=== PATIENT | male | born 1945 | race Hispanic/Latino ===

== ENCOUNTER 2017-07-26 13:44 | Emergency (ER) | payer OTHER ==
--- OUTSIDE RECORDS SUMMARY | 2017-07-26 13:52 | XMS REPORT ---
:1945 Author Organization eClinicalWorks Care Team Providers Name Role Phone Zhao Mayo Provider Role Unavailable Allergies No Known Allergies Problems Problem Type Condition Code Onset Dates Condition Status Problem Pulmonary nodule seen on imaging R91.1 Active study Problem COPD (chronic obstructive pulmonary J44.0 Active disease) with acute bronchitis Problem Benign paroxysmal positional vertigo H81.10 Active Assessment Diabetes type 2, controlled E11.9 Active Problem Hypertension I10 Active Problem Diabetes type 2, controlled E11.9 Active Problem Iron deficiency anemia, unspecified D50.9 Active iron deficiency anemia type Problem Allergic rhinitis, seasonal J30.2 Active Problem Hernia, inguinal K40.90 Active Problem Hearing loss H91.90 Active Problem Hyperlipemia, mixed E78.2 Active Medications Medication Code System Code Instructions Start End Date Status Dosage Date [facility] 89025330043 50-1000 MG Orally Active 1 tablet Twice a day with meals Results No Known Results Summary Purpose eClinicalWorks Submission
--- OUTSIDE RECORDS SUMMARY | 2017-07-26 13:52 | XMS REPORT ---
:1945 Author Organization eClinicalWorks Care Team Providers Name Role Phone Mayo Churchill Provider Role Unavailable Allergies No Known Allergies Problems Problem Type Condition Code Onset Dates Condition Status Problem Pulmonary nodule seen on imaging R91.1 Active study Problem COPD (chronic obstructive pulmonary J44.0 Active disease) with acute bronchitis Problem Benign paroxysmal positional vertigo H81.10 Active Problem Hypertension I10 Active Problem Diabetes type 2, controlled E11.9 Active Problem Iron deficiency anemia, unspecified D50.9 Active iron deficiency anemia type Problem Allergic rhinitis, seasonal J30.2 Active Problem Hernia, inguinal K40.90 Active Problem Hearing loss H91.90 Active Problem Hyperlipemia, mixed E78.2 Active Assessment Hypertension I10 Active Assessment Hyperlipemia, mixed E78.2 Active Assessment COPD (chronic obstructive pulmonary J44.0 Active disease) with acute bronchitis Assessment Iron deficiency anemia, unspecified D50.9 Active iron deficiency anemia type Assessment Pulmonary nodule seen on imaging R91.1 Active study Assessment Diabetes type 2, controlled E11.9 Active Medications Medication Code Code Instructions Start End Status Dosage System Date Date Ferrous Sulfate [facility] 45419510080 325 (65 Fe) MG June 27, Active 1 tablet Orally Twice a 2018 day Aspir-81 [facility] 91961294853 81 MG Orally Active 1 tablet Once a day ProAir [facility] 23321625471 108 (90 Base) Active 2 puffs as RespiClick MCG/ACT needed Inhalation every 6 hrs Valsartan-Goff [facility] 88115098847 320-25 MG Orally June 27, Active 1 tablet chlorothiazide Once a day 2018 Coreg [facility] 11120304747 6.25 MG Orally Active 1 tab BID Pravastatin [facility] 88675091483 10 MG Orally Active 1 tablet Sodium Once a day Coreg [facility] 71610322110 6.25 MG Active TAKE ONE (1) TABLET(S) BY MOUTH TWICE A DAY. Janumet [facility] 90480053409 50-1000 MG Active 1 tablet Orally Twice a with meals day Flonase [facility] 43424014052 50 MCG/ACT Active 1 spray in Nasally Once a each day nostril Results Name Result Date Reference Range Unit Abnormality Flag HEMOGLOBIN A1c CMP LIPID PANEL WITH REFLEX TO DIRECT LDL CBC (INCLUDES DIFF/PLT) WITH SMEAR REVIEW Summary Purpose eClinicalWorks Submission
[2017-07-26 15:26] LABS: Bicarbonate 29 mEq/L (21-31); Glucose Level 131 mg/dL (65-120); Lipase 33 U/L (22-51); Potassium 3.8 mEq/L (3.6-5.0); Sodium Level 137 mEq/L (135-145)
[2017-07-26 15:32] LABS: ALT/SGPT 20 IU/L (10-60); AST/SGOT 21 IU/L (10-42); Albumin 4.1 g/dL (3.2-5.5); Alkaline Phosphatase 43 IU/L (42-121); BUN Blood Urea Nitrogen 14 mg/dL (6-20); Bilirubin Direct < 0.1 mg/dL (0-0.2); Bilirubin Total 0.3 mg/dL (0.3-1.2); Protein, Total 7.6 g/dL (6.0-8.3)
[2017-07-26 15:40] LABS: Absolute Lymphocytes (CBC) 1.2 K/uL (0.7-4.9); Absolute Monocytes 0.6 K/uL (0.1-1.3); Absolute Neutrophil 5.3 K/uL (1.8-8.0); Basophils % 0.5 % (0-1.3); Eosinophils % 2.6 % (0-4.4); Hematocrit 39.1 % (39.6-49.0); Lymphocytes % 16.2 % (15.3-44.8); MCV 75.4 fL (80-100); MPV 8.8 fL (7.6-11.3); Monocytes % 8.1 % (3.3-12.3); RBC Red Blood Cell Count 5.18 M/uL (4.33-5.43)
[2017-07-26 15:59] LABS: Urine Blood TRACE (NEG); Urine Glucose NEGATIVE (NEG); Urine Protein NEGATIVE (NEG); Urine Specific Gravity 1.025 (1.005-1.030); Urine pH 5.5 (5.0-7.0)
--- NOTE | 2017-07-26 16:27 | RAD REPORT ---
EXAM DESCRIPTION: CT - Abdomen Pelvis W Contrast - 07/26/2017 4:12 pm CLINICAL HISTORY: Abdominal pain for 3 weeks. COMPARISON: none. TECHNIQUE: Computed axial tomography of the abdomen pelvis was obtained. 100 cc Isovue-300 was admin istered intravenously. Oral contrast was not requested which limits evaluation of bowel. All CT scans are performed using dose optimization technique as appropriate and may include automated exposure control or mA/KV adjustment according to patient size. FINDINGS: The liver, spleen, pancreas, adrenal and kidneys appear unremarkable. There is no evidence of diverticulitis. The appendix is normal The prostate gland is markedly enlarged containing calcification. Postsurgical changes of a left inguinal hernia repair are noted. A small right inguinal hernia contai ns fat IMPRESSION: Marked prostatic hypertrophy No acute abnormality is displayed
--- NOTE | 2017-07-26 16:52 | EDPHYS ---
Physician Documentation [facility] Name: Alexx Altman Age: 72 yrs Sex: Male : 1945 Arrival Date: 07/26/2017 Time: 13:47 Bed 13 Private MD: Mayo Churchill ED Physician Sukhi Bustillos HPI: 07/26 16:04 This 72 yrs old Male presents to ER via Ambulatory with complaints of jr8 Abdominal Pain. 16:04 The patient presents with abdominal pain in the upper abdomen. Onset: The jr8 symptoms/episode began/occurred acutely, 3 month(s) ago, and became worse and became persistent. The symptoms do not radiate. Associated signs and symptoms: Pertinent positives: nausea and vomiting. The symptoms are described as shooting. Modifying factors: The symptoms are alleviated by nothing, the symptoms are aggravated by nothing. Severity of pain: At its worst the pain was mild in the emergency department the pain is unchanged. The patient has not experienced similar symptoms in the past. The patient has not recently seen a physician. Historical: - Allergies: 14:04 No Known Allergies; aj1 - Home Meds: 14:04 aspirin 81 mg Oral chew 1 tab once daily [Active]; carvedilol 6.25 mg Oral tab 1 tab 2 aj1 times per day [Active]; Fish Oil 183.3 mg-75 mg -91.6 mg-306 mg Oral cap [Active]; Janumet 50-1,000 mg Oral tab 1 tab 2 times per day [Active]; pravastatin 10 mg Oral tab 1 tab once daily [Active]; valsartan-hydrochlorothiazide 320-12.5 mg Oral tab 1 tab once daily [Active]; - PMHx: 14:04 Asthma; Diabetes - NIDDM; Hypertension; Hyperlipidemia; aj1 - Immunization history:: Flu vaccine is up to date. - Social history:: Smoking status: Patient/guardian denies using tobacco. - Ebola Screening: : Patient denies travel to an Ebola-affected area in the 21 days before illness onset. ROS: 16:04 Eyes: Negative for injury, pain, redness, and discharge, ENT: Negative for injury, jr8 pain, and discharge, Neck: Negative for injury, pain, and swelling, Cardiovascular: Negative for chest pain, palpitations, and edema, Respiratory: Negative for shortness of breath, cough, wheezing, and pleuritic chest pain, Back: Negative for injury and pain, MS/Extremity: Negative for injury and deformity, Skin: Negative for injury, rash, and discoloration, Neuro: Negative for headache, weakness, numbness, tingling, and seizure. 16:04 Abdomen/GI: Positive for abdominal pain, nausea and vomiting, Negative for diarrhea, constipation, abdominal cramps, abdominal distension, anorexia, dysphagia, hematemesis, black/tarry stool, rectal pain, rectal bleeding, bowel incontinence, flatulence. Exam: 16:04 ENT: Nares patent. No nasal discharge, no septal abnormalities noted. Tympanic jr8 membranes are normal and external auditory canals are clear. Oropharynx with no redness, swelling, or masses, exudates, or evidence of obstruction, uvula midline. Mucous membranes moist. Cardiovascular: Regular rate and rhythm with a normal S1 and S2. No gallops, murmurs, or rubs. Normal PMI, no JVD. No pulse deficits. Respiratory: Lungs have equal breath sounds bilaterally, clear to auscultation and percussion. No rales, rhonchi or wheezes noted. No increased work of breathing, no retractions or nasal flaring. Back: No spinal tenderness. No costovertebral tenderness. Full range of motion. Skin: Warm, dry with normal turgor. Normal color with no rashes, no lesions, and no evidence of cellulitis. MS/ Extremity: Pulses equal, no cyanosis. Neurovascular intact. Full, normal range of motion. Neuro: Awake and alert, GCS 15, oriented to person, place, time, and situation. Cranial nerves II-XII grossly intact. Motor strength 5/5 in all extremities. Sensory grossly intact. Cerebellar exam normal. Normal gait. 16:04 Abdomen/GI: Inspection: abdomen appears normal, Bowel sounds: active, all quadrants, Palpation: soft, in all quadrants, mild abdominal tenderness, in the epigastric area, left upper quadrant and left lower quadrant, mass, is not appreciated, rebound tenderness, is not appreciated, voluntary guarding, is not appreciated, involuntary guarding, is not appreciated, no appreciated organomegaly. Vital Signs: 14:04 BP 178 / 85; Pulse 62; Resp 18; Temp 98.2(O); Pulse Ox 96% on R/A; Weight 72.57 kg (R); aj1 Height 5 ft. 5 in. (165.10 cm); Pain 10/10; 15:15 BP 150 / 76; Pulse 60; Resp 18 S; Pulse Ox 98% on R/A; Pain 0/10; aa5 16:00 BP 139 / 79; Pulse 60; Resp 16 S; Pulse Ox 96% on R/A; Pain 0/10; aa5 14:04 Body Mass Index 26.63 (72.57 kg, 165.10 cm) aj1 MDM: 14:52 Patient medically screened. jr8 16:50 Data reviewed: vital signs, nurses notes, lab test result(s), radiologic studies, CT jr8 scan, and as a result, I will discharge patient. Data interpreted: Pulse oximetry: on room air is 96 %. Interpretation: normal. Counseling: I had a detailed discussion with the patient and/or guardian regarding: the historical points, exam findings, and any diagnostic results supporting the discharge/admit diagnosis, lab results, radiology results, the need for outpatient follow up, a relocation counselor, to return to the emergency department if symptoms worsen or persist or if there are any questions or concerns that arise at home. ED course: Patient with benign abdomen on examination. No fevers, no white cell count. No acute findings on CT. Patient with minimal pain currently. Needs to f/u with GI for further evaluation. If worse to come back. Patient and family is good with this . 07/26 14:53 Order name: Basic Metabolic Panel; Complete Time: 15:51 07/26 14:53 Order name: CBC with Diff; Complete Time: 16:29 07/26 14:53 Order name: Creatinine for Radiology; Complete Time: 15:51 07/26 14:53 Order name: Hepatic Function; Complete Time: 15:51 07/26 14:53 Order name: Lipase; Complete Time: 15:51 07/26 15:41 Order name: Urine Dipstick--Ancillary (enter results) bd 07/26 14:53 Order name: IV Saline Lock; Complete Time: 15:07 07/26 14:53 Order name: Labs collected and sent; Complete Time: 15:07 07/26 14:53 Order name: Urine Dipstick-Ancillary (obtain specimen); Complete Time: 15:41 07/26 15:41 Order name: Urine Dipstick-Ancillary; Complete Time: 16:01 EDMI 07/26 15:58 Order name: CT Abd/Pelvis - W/Contrast; Complete Time: 16:29 jr8 Administered Medications: No medications were administered Disposition: 18:35 Co-signature as Attending Physician, Sukhi Bustillos MD. rn Disposition: 07/26/17 16:51 Discharged to Home. Impression: Abdominal and pelvic pain. - Condition is Stable. - Discharge Instructions: Abdominal Pain, Adult. - Prescriptions for omeprazole 40 mg Oral capsule,delayed release(DR/EC) - take 1 capsule by ORAL route once daily; 30 capsule. - Medication Reconciliation Form, Thank You Letter, Antibiotic Education, Prescription Opioid Use form. - Follow up: Rajendra Murray MD; When: 5 - 6 days; Reason: Recheck today's complaints, Continuance of care, Re-evaluation by your physician. - Problem is new. - Symptoms have improved. Signatures: Dispatcher [employer] [facility] Hailee Vera RN RN aj1 Sukhi Bustillos MD MD rn Roszak, Josh, PA PA jr8 Thomas Gomes RN RN hj Corrections: (The following items were deleted from the chart) 17:53 16:51 07/26/2017 16:51 Discharged to Home. Impression: Abdominal and pelvic pain. hj Condition is Stable. Forms are Medication Reconciliation Form, Thank You Letter, Antibiotic Education, Prescription Opioid Use. Follow up: Rajendra Murray; When: 5 - 6 days; Reason: Recheck today's complaints, Continuance of care, Re-evaluation by your physician. Problem is new. Symptoms have improved. jr8
--- NOTE | 2017-07-26 16:52 | ER ---
Nurse's Notes [facility] Name: Alexx Altman Age: 72 yrs Sex: Male : 1945 Arrival Date: 07/26/2017 Time: 13:47 Bed 13 Private MD: Mayo Churchill Diagnosis: Abdominal and pelvic pain Presentation: 07/26 14:02 Presenting complaint: Patient states: abdominal pain for the past 3 weeks that comes aj1 and goes, but has been severe for the past week. Report nausea, vomiting. Denies diarrhea, fever. Transition of care: patient was not received from another setting of care. Onset of symptoms was June 2017. Risk Assessment: Do you want to hurt yourself or someone else? Patient reports no desire to harm self or others. Initial Sepsis Screen: Does the patient meet any 2 criteria? No. Patient's initial sepsis screen is negative. Does the patient have a suspected source of infection? No. Patient's initial sepsis screen is negative. Care prior to arrival: None. 14:02 Method Of Arrival: Ambulatory aj1 14:02 Acuity: WILLIAM 3 aj1 Triage Assessment: 14:04 General: Appears in no apparent distress. uncomfortable, Behavior is calm, cooperative, aj1 appropriate for age. Pain: Complains of pain in epigastric area, left upper quadrant and left lower quadrant Pain does not radiate. Pain currently is 10 out of 10 on a pain scale. GI: Abdomen is non-distended. Historical: - Allergies: 14:04 No Known Allergies; aj1 - Home Meds: 14:04 aspirin 81 mg Oral chew 1 tab once daily [Active]; carvedilol 6.25 mg Oral tab 1 tab 2 aj1 times per day [Active]; Fish Oil 183.3 mg-75 mg -91.6 mg-306 mg Oral cap [Active]; Janumet 50-1,000 mg Oral tab 1 tab 2 times per day [Active]; pravastatin 10 mg Oral tab 1 tab once daily [Active]; valsartan-hydrochlorothiazide 320-12.5 mg Oral tab 1 tab once daily [Active]; - PMHx: 14:04 Asthma; Diabetes - NIDDM; Hypertension; Hyperlipidemia; aj1 - Immunization history:: Flu vaccine is up to date. - Social history:: Smoking status: Patient/guardian denies using tobacco. - Ebola Screening: : Patient denies travel to an Ebola-affected area in the 21 days before illness onset. Screenin:02 Abuse screen: Denies threats or abuse. Denies injuries from another. Nutritional hj screening: No deficits noted. Tuberculosis screening: No symptoms or risk factors identified. Fall Risk None identified. Assessment: 15:02 GI: Bowel sounds present X 4 quads. Abd is soft Abd is non tender. hj 15:02 General: Appears in no apparent distress. uncomfortable, Behavior is calm, cooperative, hj appropriate for age. Pain: Complains of pain in epigastric area Pain radiates to left lower quadrant and left upper quadrant. Neuro: Level of Consciousness is awake, alert, obeys commands, Oriented to person, place, time, situation, Appropriate for age. Cardiovascular: Capillary refill < 3 seconds Patient's skin is warm and dry. Respiratory: Airway is patent Respiratory effort is even, unlabored, Respiratory pattern is regular, symmetrical. GI: Reports lower abdominal pain, upper abdominal pain. : No signs and/or symptoms were reported regarding the genitourinary system. EENT: No signs and/or symptoms were reported regarding the EENT system. Derm: No signs and/or symptoms reported regarding the dermatologic system. Musculoskeletal: No signs and/or symptoms reported regarding the musculoskeletal system. 16:00 Reassessment: Patient and/or family updated on plan of care and expected duration. Pain aa5 level reassessed. Patient is alert, oriented x 3, equal unlabored respirations, skin warm/dry/pink. Pt back from CT . 16:00 GI: Patient currently denies nausea, vomiting. aa5 Vital Signs: 14:04 BP 178 / 85; Pulse 62; Resp 18; Temp 98.2(O); Pulse Ox 96% on R/A; Weight 72.57 kg (R); aj1 Height 5 ft. 5 in. (165.10 cm); Pain 10/10; 15:15 BP 150 / 76; Pulse 60; Resp 18 S; Pulse Ox 98% on R/A; Pain 0/10; aa5 16:00 BP 139 / 79; Pulse 60; Resp 16 S; Pulse Ox 96% on R/A; Pain 0/10; aa5 14:04 Body Mass Index 26.63 (72.57 kg, 165.10 cm) aj1 ED Course: 13:47 Patient arrived in ED. mr 13:47 Mayo Churchill DO is Private Physician. mr 14:03 Triage completed. aj1 14:04 Arm band placed on Patient placed in waiting room, Patient notified of wait time. aj1 14:52 Jesus Manuel Tang PA is PHCP. jr8 14:52 Sukhi Bustillos MD is Attending Physician. jr8 15:02 Thomas Gomes, RN is Primary Nurse. hj 15:03 Patient has correct armband on for positive identification. Placed in gown. Bed in low hj position. Call light in reach. Side rails up X 1. Adult w/ patient. 15:05 Initial lab(s) drawn, by me, sent to lab. Inserted saline lock: 20 gauge in right hj antecubital area, using aseptic technique. Blood collected. 16:[address] jj2 16:10 CT completed. Patient tolerated procedure well. Patient moved back from CT. mw3 16:13 CT Abd/Pelvis - W/Contrast In Process Unspecified. EDMS 16:23 No provider procedures requiring assistance completed. aa5 16:51 Rajendra Murray MD is Referral Physician. jr8 17:53 IV discontinued, intact, bleeding controlled, No redness/swelling at site. Pressure hj dressing applied. Administered Medications: No medications were administered Outcome: 16:51 Discharge ordered by . jr8 17:53 Discharged to home ambulatory, with family. hj 17:53 Condition: stable 17:53 Discharge instructions given to patient, family, Instructed on discharge instructions, follow up and referral plans. medication usage, Demonstrated understanding of instructions, follow-up care, medications, Prescriptions given X 1. 17:53 Patient left the ED. hj Signatures: Dispatcher [employer] EDMS Hailee Vera RN RN aj1 Jodi Gallego Ray Pina jj2 Natasha Osegurea RN RN aa5 Jesus Manuel Tang PA PA jr8 Thomas Gomes RN RN hj Willis, Michelle mw3 Corrections: (The following items were deleted from the chart) 16:22 16:00 Reassessment: Patient and/or family updated on plan of care and expected aa5 duration. Pain level reassessed. Patient is alert, oriented x 3, equal unlabored respirations, skin warm/dry/pink. Pt back from CT . aa5 16:23 16:22 GI: Patient currently denies nausea, vomiting, aa5 aa5
[2017-07-26 18:15] VITALS: TEMP 98.2
[2017-07-26 18:18] VITALS: BP 139/79; O2SAT 96
== END 2017-07-26 17:53 | disposition home or self-care (01) ==
LOC: ER 13:44
DX: R10.2 Pelvic and perineal pain (principal); I10 Essential (primary) hypertension; E11.9 Type 2 diabetes mellitus without complications; E78.5 Hyperlipidemia, unspecified; Z79.82 Long term (current) use of aspirin
CPT/HCPCS: 36415; 74177; 80048; 80076; 81003; 83690; 85025; 99284; Q9967

== ENCOUNTER 2018-05-23 18:51 | Emergency (ER) | payer OTHER ==
--- OUTSIDE RECORDS SUMMARY | 2018-05-23 18:53 | XMS REPORT ---
:1945 Author Organization eClinicalWorks Care Team Providers Name Role Phone Zhao Mayo Provider Role Unavailable Allergies, Adverse Reactions, Alerts Substance Reaction Event Type N.K.D.A. Info Not Available Non Drug Allergy Problems Problem Type Condition Code Onset Dates [...] Active Problem Hyperlipemia, mixed E78.2 Active Assessment COPD (chronic obstructive pulmonary J44.0 Active disease) with acute bronchitis Assessment Pulmonary nodule seen on imaging R91.1 Active study Assessment Encounter for screening for other Z11.59 Active viral diseases Assessment Iron deficiency anemia, unspecified D50.9 Active iron deficiency anemia type Assessment Diabetes type 2, controlled E11.9 Active Assessment Hypertension I10 Active Assessment Medicare annual wellness visit, Z00.00 Active subsequent Assessment Hyperlipemia, mixed E78.2 Active Medications Medication Code Code Instructions Start End Status Dosage System Date Date ProAir [facility] 04496660038 108 (90 Base) Active 2 puffs as RespiClick MCG/ACT needed Inhalation every 6 hrs Coreg [facility] 72245176977 6.25 MG Orally Active 1 tab BID Aspir-81 [facility] 22519990388 81 MG Orally Active 1 tablet Once a day Janumet [facility] 83834783749 50-1000 MG Active 1 tablet Orally Twice a with meals day Ferrous Sulfate [facility] 30306949586 325 (65 Fe) MG Active 1 tablet Orally Twice a day Valsartan-[place] [facility] 86985091886 320-25 MG Inactive 1 tablet chlorothiazide Orally Once a day Losartan [facility] 01035778176 100-25 MG Sep 19, Active 1 tablet Potassium-HCTZ Orally Once a 2018 day Flonase [facility] 37935081263 50 MCG/ACT Active 1 spray in Nasally Once a each day nostril Pravastatin [facility] 25176643356 10 MG Orally Active 1 tablet Sodium Once a day Results No Known Results Summary Purpose eClinicalWorks Submission
--- OUTSIDE RECORDS SUMMARY | 2018-05-23 18:53 | XMS REPORT ---
[...] Status Dosage System Date Date Ferrous Sulfate [facility] 46909892349 325 (65 Fe) MG June 27, Active 1 tablet Orally Twice a 2018 day Aspir-81 [facility] 06722894546 81 MG Orally Active 1 tablet Once a day ProAir [facility] 58687638229 108 (90 Base) Active 2 puffs as RespiClick MCG/ACT needed Inhalation every 6 hrs Valsartan-[place] [facility] 47684803399 320-25 MG Orally June 27, Active 1 tablet chlorothiazide Once a day 2018 Coreg [facility] 64488726603 6.25 MG Orally Active 1 tab BID Pravastatin [facility] 44292958918 10 MG Orally Active 1 tablet Sodium Once a day Coreg [facility] 63588092793 6.25 MG Active TAKE ONE (1) TABLET(S) BY MOUTH TWICE A DAY. Janumet [facility] 61546765644 50-1000 MG Active 1 tablet Orally Twice a with meals day Flonase [facility] 84038744481 50 MCG/ACT Active 1 spray in Nasally Once a each day nostril Results Name Result Date Reference Range Unit Abnormality Flag HEMOGLOBIN A1c CMP LIPID PANEL WITH REFLEX TO DIRECT LDL CBC (INCLUDES DIFF/PLT) WITH SMEAR REVIEW Summary Purpose eClinicalWorks Submission
--- OUTSIDE RECORDS SUMMARY | 2018-05-23 18:53 | XMS REPORT ---
[...] Instructions Start End Date Status Dosage Date [facility] 03471668720 50-1000 MG Orally Active 1 tablet Twice a day with meals Results No Known Results Summary Purpose eClinicalWorks Submission
--- OUTSIDE RECORDS SUMMARY | 2018-05-23 18:54 | XMS REPORT ---
:1945 Author Organization eClinicalWorks Care Team Providers Name Role Phone Churchill Mayo Provider Role Unavailable Allergies No Known [...] Active Problem Hyperlipemia, mixed E78.2 Active Medications No Known Medications Results No Known Results Summary Purpose eClinicalWorks Submission
--- OUTSIDE RECORDS SUMMARY | 2018-05-23 18:54 | XMS REPORT ---
:1945 Author Organization eClinicalWorks Care Team Providers Name Role Phone Zhao [facility] Provider Role Unavailable Allergies, Adverse Reactions, Alerts [...] Active Problem Hyperlipemia, mixed E78.2 Active Assessment Hyperlipemia, mixed E78.2 Active Assessment Iron deficiency anemia, unspecified D50.9 Active iron deficiency anemia type Assessment COPD (chronic obstructive pulmonary J44.0 Active disease) with acute bronchitis Assessment Diabetes type 2, controlled E11.9 Active Assessment Hypertension I10 Active Medications Medication Code Code Instructions Start End Status Dosage System Date Date Coreg [facility] 10993202078 6.25 MG Orally Active 1 tab BID Coreg [facility] 57759096411 6.25 MG Active TAKE ONE (1) TABLET(S) BY MOUTH TWICE A DAY. Janumet [facility] 62200475002 50-1000 MG Active 1 tablet Orally Twice a with meals day Pravastatin [facility] 97518106594 10 MG Orally Active 1 tablet Sodium Once a day Ferrous Sulfate [facility] 70574099333 325 (65 Fe) MG Active 1 tablet Orally Twice a day Losartan [facility] 72373209622 100-25 MG Orally Active 1 tablet Potassium-HCTZ Once a day Pravastatin [facility] 06021896669 10 MG Orally Active 1 tablet Sodium Once a day ProAir [facility] 26842884583 108 (90 Base) Active 2 puffs as RespiClick MCG/ACT needed Inhalation every 6 hrs Aspir-81 [facility] 60755538574 81 MG Orally Active 1 tablet Once a day Flonase [facility] 06915312712 50 MCG/ACT Active 1 spray in Nasally Once a each day nostril Results No Known Results Summary Purpose eClinicalWorks Submission
--- OUTSIDE RECORDS SUMMARY | 2018-05-23 18:54 | XMS REPORT ---
:1945 Author Organization eClinicalWorks Care Team Providers Name Role Phone JuanraymondJose Provider Role Unavailable Allergies, Adverse Reactions, Alerts Substance Reaction Event Type N.K.D.A. Info Not Available Non Drug Allergy Problems Problem Type Condition Code Onset Dates Condition Status Problem Pulmonary nodule seen on imaging R91.1 Active study Problem COPD (chronic obstructive pulmonary J44.0 Active disease) with acute bronchitis Problem Benign paroxysmal positional vertigo H81.10 Active Assessment Internal hemorrhoids K64.8 Active Problem Hypertension I10 Active Problem Diabetes type 2, controlled E11.9 Active Problem Iron deficiency anemia, unspecified D50.9 Active iron deficiency anemia type Problem Allergic rhinitis, seasonal J30.2 Active Problem Hernia, inguinal K40.90 Active Problem Hearing loss H91.90 Active Problem Hyperlipemia, mixed E78.2 Active Medications Medication Code Code Instructions Start End Status Dosage System Date Date Ferrous [facility] 66976329937 325 (65 Fe) MG Active 1 tablet Sulfate Orally Twice a day -81 ND 90342228710 81 MG Orally Active 1 tablet Once a day Coreg [facility] 60319489343 6.25 MG Active TAKE ONE (1) TABLET(S) BY MOUTH TWICE A DAY. ProAir ND 05458158852 108 (90 Base) Active INHALE TWO RespiClick MCG/ACT (2) PUFFS BY MOUTH EVERY 4 HOURS NEEDED. Pravastatin ND 33919997005 10 MG Orally Active 1 tablet Sodium Once a day ProAir ND 59582221450 108 (90 Base) Active 2 puffs as RespiClick MCG/ACT needed Inhalation every 6 hrs Losartan [facility] 53465107018 100-25 MG Active 1 tablet Potassium-HCTZ Orally Once a day Rectal Rocket NDC 0 rectally as April Active 1 suppository needed 2018 Pravastatin ND 76297595054 10 MG Orally Active 1 tablet Sodium Once a day Janumet ND 89442180995 50-1000 MG Active 1 tablet with Orally Twice a meals day Flonase ND 07629398324 50 MCG/ACT Active 1 spray in Nasally Once a each nostril day Results No Known Results Summary Purpose eClinicalWorks Submission
--- OUTSIDE RECORDS SUMMARY | 2018-05-23 18:54 | XMS REPORT ---
:1945 Author Organization eClinicalWorks Care Team Providers Name Role Phone Zhao [facility] Provider Role Unavailable Allergies, Adverse Reactions, [...] Start End Status Dosage System Date Date Pravastatin [facility] 91189605737 10 MG Orally Active 1 tablet Sodium Once a day Janumet [facility] 55776960803 50-1000 MG Active 1 tablet Orally Twice a with meals day Ferrous Sulfate [facility] 44477948570 325 (65 Fe) MG Active 1 tablet Orally Twice a day Flonase [facility] 50359037975 50 MCG/ACT Active 1 spray in Nasally Once a each day nostril ProAir [facility] 93006265431 108 (90 Base) Active 2 puffs as RespiClick MCG/ACT needed Inhalation every 6 hrs Pravastatin [facility] 82969747365 10 MG Orally Active 1 tablet Sodium Once a day Coreg [facility] 84677772666 6.25 MG Orally Active 1 tab BID Losartan [facility] 68594240659 100-25 MG Orally Active 1 tablet Potassium-HCTZ Once a day -81 [facility] 87739492383 81 MG Orally Active 1 tablet Once a day ProAir NDC 56033581954 108 (90 Base) Active INHALE TWO RespiClick MCG/ACT (2) PUFFS BY MOUTH EVERY 4 HOURS NEEDED. Results No Known Results Summary Purpose eClinicalWorks Submission
--- OUTSIDE RECORDS SUMMARY | 2018-05-23 18:54 | XMS REPORT ---
:1945 Author Organization eClinicalWorks Care Team Providers Name Role Phone Jose Flores Provider Role Unavailable Allergies No Known Allergies [...]
[2018-05-23 20:15] LABS: Absolute Lymphocytes (CBC) 1.2 K/uL (0.7-4.9); Absolute Monocytes 0.8 K/uL (0.1-1.3); Absolute Neutrophil 5.4 K/uL (1.8-8.0); Basophils % 1.1 % (0-1.3); Eosinophils % 12.9 % (0-4.4); Hematocrit 39.5 % (39.6-49.0); Lymphocytes % 14.4 % (15.3-44.8); MPV 6.9 fL (7.6-11.3); Monocytes % 9.5 % (3.3-12.3); RBC Red Blood Cell Count 4.45 M/uL (4.33-5.43)
[2018-05-23 20:22] LABS: Urine Bacteria <20 /HPF (NONE SEEN); Urine Culture Reflex Order NOT NEEDED; Urine RBC <5 /HPF (NONE SEEN)
[2018-05-23 20:23] LABS: Urine Blood 1+ (NEG); Urine Glucose NEGATIVE (NEG); Urine Protein NEGATIVE (NEG); Urine Specific Gravity 1.015 (1.005-1.030); Urine pH 5.5 (5.0-7.0)
[2018-05-23 20:32] LABS: Albumin 3.3 g/dL (3.4-5.0); Bilirubin Direct 0.1 mg/dL (0-0.2); Bilirubin Total 0.3 mg/dL (0.2-1.0); Potassium 3.5 mmol/L (3.5-5.1); Protein, Total 7.2 g/dL (6.4-8.2)
--- NOTE | 2018-05-23 20:39 | RAD REPORT ---
EXAM DESCRIPTION: CT - Stone Protocol - 05/23/2018 7:46 pm CLINICAL HISTORY: Abdominal pain. Left-sided pain COMPARISON: July 2017 TECHNIQUE: Computed axial tomography of the abdomen pelvis was obtained without oral or IV contrast. Lack of IV and oral contrast limits evaluation of solid organs, bowel, and vessels. Coronal reformat rylie images were obtained and reviewed. All CT scans are performed using dose optimization technique as appropriate and may include automated exposure control or mA/KV adjustment according to patient size. FINDINGS: Mild tree-in-bud opacities within the left lower lobe. Left perirenal and posterior left upper quadrant stranding is present. Left extrarenal pelvis. Mild p rominence of the renal pelvis is unchanged from the prior exam probably is not significant. A renal c alculus is not seen. A ureteral calculus is not visualized. Prostate gland is markedly enlarged. A right renal calculus is not seen. Periaortic/caval lymphadenopathy is present. Lymph nodes measure up to 17 millimeter short axis. Retr ocrural lymphadenopathy has also developed. Lymph nodes within the gastrohepatic ligament and celiac axis have developed. The liver, spleen, pancreas and adrenals appear grossly normal There is no evidence of diverticulitis. Postsurgical changes stop a left inguinal hernia repair IMPRESSION: Negative for a genitourinary calculus Development of mild to moderate lymphadenopathy within the abdomen may indicate lymphoma or metastati c disease
[2018-05-23] MEDS ORDERED: KETOROLAC 30 MG/ML INJ ONE (21:42)
--- NOTE | 2018-05-23 22:05 | ER ---
Nurse's Notes [facility] Name: Alexx Altman Age: 73 yrs Sex: Male : 1945 Arrival Date: 05/23/2018 Time: 18:57 Bed 8 Private MD: Diagnosis: Low back pain Presentation: 05/23 18:57 Presenting complaint: Patient states: left low back pain started about a week ago. Pain sv does not radiate. Denies burning with urination or injury. Transition of care: patient was not received from another setting of care. Onset of symptoms was May 19, 2018. Care prior to arrival: None. 18:57 Method Of Arrival: Ambulatory sv 18:57 Acuity: WILLIAM 3 sv 19:42 Risk Assessment: Do you want to hurt yourself or someone else? Patient reports no ak1 desire to harm self or others. Initial Sepsis Screen: Does the patient meet any 2 criteria? No. Patient's initial sepsis screen is negative. Does the patient have a suspected source of infection? No. Patient's initial sepsis screen is negative. Triage Assessment: 19:42 General: Appears in no apparent distress. Behavior is calm, cooperative. ak1 Historical: - Allergies: 18:59 No Known Allergies; sv - PMHx: 18:59 Asthma; Diabetes - NIDDM; Hyperlipidemia; Hypertension; sv - Immunization history:: Adult Immunizations unknown. - Social history:: Smoking status: Patient/guardian denies using tobacco. - Ebola Screening: : No symptoms or risks identified at this time. Screenin:42 Abuse screen: Denies threats or abuse. Denies injuries from another. Nutritional ak1 screening: No deficits noted. Tuberculosis screening: No symptoms or risk factors identified. Fall Risk None identified. Assessment: 19:37 General: Appears in no apparent distress. Pain: Complains of pain in back. Neuro: Level ak1 of Consciousness is awake, alert, obeys commands, Oriented to person, place, time, situation, Raw Scales Operator are equal bilaterally Moves all extremities. Gait is steady, Speech is normal, Facial symmetry appears normal. Cardiovascular: No deficits noted. Respiratory: No deficits noted. GI: No signs and/or symptoms were reported involving the gastrointestinal system. : Reports pain in left flank(s). EENT: No signs and/or symptoms were reported regarding the EENT system. Derm: No signs and/or symptoms reported regarding the dermatologic system. Musculoskeletal: Range of motion: intact in all extremities, pt c/o pain to left flank X1 week [employer]. pt stated he came in tonight because the pain increased. 21:33 Reassessment: Patient appears in no apparent distress at this time. No changes from ak1 previously documented assessment. Patient is alert, oriented x 3, equal unlabored respirations, skin warm/dry/pink. Patient states feeling better. Patient states symptoms have improved. Vital Signs: 18:58 BP 155 / 76; Pulse 70; Resp 18; Temp 98; Pulse Ox 95% ; Weight 71.21 kg; Height 5 ft. 6 sv in. (167.64 cm); Pain 5/10; 21:33 BP 137 / 80; Pulse 61; Resp 16; Temp 98.2; Pulse Ox 96% on R/A; ak1 18:58 Body Mass Index 25.34 (71.21 kg, 167.64 cm) sv ED Course: 18:57 Patient arrived in ED. sv 18:58 Triage completed. sv 18:59 Arm band placed on. sv 19:35 Albin Henriquez MD is Attending Physician. tw4 19:36 Mitra Little, CASSY is Primary Nurse. ak1 19:41 Patient moved to MO. ok 19:42 Patient has correct armband on for positive identification. Bed in low position. Call ak1 light in reach. Side rails up X 1. Adult w/ patient. Pulse ox on. NIBP on. 19:45 CT Stone Protocol In Process Unspecified. EDMS 19:45 CT completed. Patient tolerated procedure well. Patient moved back from MO. ok 20:07 Initial lab(s) drawn, by ar, sent to lab. Urine collected: clean catch specimen. ak1 Inserted saline lock: 22 gauge in right antecubital area, using aseptic technique. Blood collected. 21:34 No provider procedures requiring assistance completed. ak1 22:23 IV discontinued, intact, bleeding controlled, No redness/swelling at site. Pressure ak1 dressing applied. Administered Medications: 21:33 Drug: TORadol 30 mg Route: IVP; Site: right antecubital; ak1 21:33 Follow up: Response: No adverse reaction ak1 Outcome: 22:04 Discharge ordered by . tw4 22:23 Discharged to home ambulatory, with family. ak1 22:23 Condition: good 22:23 Discharge instructions given to patient, family, Instructed on discharge instructions, follow up and referral plans. no drinking with medication, no driving heavy equipment, medication usage, Demonstrated understanding of instructions, follow-up care, medications, Prescriptions given X 2. 22:24 Patient left the ED. ak1 Signatures: Dispatcher [employer] EDCorinne Mojica RN RN sv Krenek, Amber, RN RN ak1 Yayo Lynne Terrence, MD MD tw4
--- NOTE | 2018-05-23 22:05 | EDPHYS ---
Physician Documentation [facility] Name: Alexx Altman Age: 73 yrs Sex: Male : 1945 Arrival Date: 05/23/2018 Time: 18:57 Bed 8 Private MD: ED Physician Albin Henriquez HPI: 05/23 19:47 This 73 yrs old Male presents to ER via Ambulatory with complaints of Back tw4 Pain. 19:47 The patient presents with pain that is acute, with no known mechanism of injury. The tw4 symptoms are located in the left mid back. Onset: The symptoms/episode began/occurred 1 week(s) ago. The pain does not radiate. Associated signs and symptoms: The patient has no apparent associated signs or symptoms. Modifying factors: The patient symptoms are alleviated by nothing, the patient symptoms are aggravated by nothing. Historical: - Allergies: 18:59 No Known Allergies; sv - PMHx: 18:59 Asthma; Diabetes - NIDDM; Hyperlipidemia; Hypertension; sv - Immunization history:: Adult Immunizations unknown. - Social history:: Smoking status: Patient/guardian denies using tobacco. - Ebola Screening: : No symptoms or risks identified at this time. ROS: 19:47 Constitutional: Negative for fever, chills, and weight loss, Cardiovascular: Negative tw4 for chest pain, palpitations, and edema, Respiratory: Negative for shortness of breath, cough, wheezing, and pleuritic chest pain, Abdomen/GI: Negative for abdominal pain, nausea, vomiting, diarrhea, and constipation, MS/Extremity: Negative for injury and deformity, Skin: Negative for injury, rash, and discoloration. 19:47 Back: Positive for pain at rest, Negative for injury or acute deformity, decreased range of motion, radiated pain, acute changes. Exam: 19:47 Constitutional: This is a well developed, well nourished patient who is awake, alert, tw4 and in no acute distress. Head/Face: Normocephalic, atraumatic. Chest/axilla: Normal chest wall appearance and motion. Nontender with no deformity. No lesions are appreciated. Cardiovascular: Regular rate and rhythm with a normal S1 and S2. No gallops, murmurs, or rubs. Normal PMI, no JVD. No pulse deficits. Respiratory: Lungs have equal breath sounds bilaterally, clear to auscultation and percussion. No rales, rhonchi or wheezes noted. No increased work of breathing, no retractions or nasal flaring. Abdomen/GI: Soft, non-tender, with normal bowel sounds. No distension or tympany. No guarding or rebound. No evidence of tenderness throughout. Back: No spinal tenderness. No costovertebral tenderness. Full range of motion. MS/ Extremity: Pulses equal, no cyanosis. Neurovascular intact. Full, normal range of motion. Neuro: Awake and alert, GCS 15, oriented to person, place, time, and situation. Cranial nerves II-XII grossly intact. Motor strength 5/5 in all extremities. Sensory grossly intact. Cerebellar exam normal. Normal gait. Vital Signs: 18:58 BP 155 / 76; Pulse 70; Resp 18; Temp 98; Pulse Ox 95% ; Weight 71.21 kg; Height 5 ft. 6 sv in. (167.64 cm); Pain 5/10; 21:33 BP 137 / 80; Pulse 61; Resp 16; Temp 98.2; Pulse Ox 96% on R/A; ak1 18:58 Body Mass Index 25.34 (71.21 kg, 167.64 cm) sv MDM: 19:35 Patient medically screened. tw4 19:47 Data reviewed: vital signs, nurses notes. 05/23 19:37 Order name: Basic Metabolic Panel; Complete Time: 21:29 05/23 22:01 Interpretation: Normal except: GLUC 138; GFR 82. 05/23 19:37 Order name: CBC with Diff; Complete Time: 22:00 05/23 22:00 Interpretation: HGB 13.2; HCT 39.5. 05/23 19:37 Order name: Creatinine for Radiology; Complete Time: 22:00 05/23 19:37 Order name: Hepatic Function; Complete Time: 22:00 05/23 22:00 Interpretation: Normal except: ALB 3.3; GLOB 3.9; A/G 0.8. 05/23 19:37 Order name: Lipase; Complete Time: 22:03 05/23 22:03 Interpretation: Normal except: LIP 194. 05/23 19:37 Order name: Urine Microscopic Only; Complete Time: 22:00 05/23 19:37 Order name: IV Saline Lock; Complete Time: 20:06 tw4 05/23 19:37 Order name: Labs collected and sent; Complete Time: 20:07 tw4 05/23 19:37 Order name: Urine Dipstick-Ancillary (obtain specimen); Complete Time: 19:44 tw4 05/23 19:37 Order name: CT Stone Protocol; Complete Time: 21:28 tw4 05/23 19:49 Order name: Urine Dipstick--Ancillary (enter results); Complete Time: 22:00 6 05/23 22:00 Interpretation: Normal except: UBLD 1+. tw4 Administered Medications: 21:33 Drug: TORadol 30 mg Route: IVP; Site: right antecubital; ak1 21:33 Follow up: Response: No adverse reaction ak1 Disposition: 05/23/18 22:04 Discharged to Home. Impression: Low back pain. - Condition is Stable. - Discharge Instructions: Back Pain, Adult. - Prescriptions for Cyclobenzaprine 10 mg Oral Tablet - take 1 tablet by ORAL route every 8 hours As needed; 30 tablet. Tramadol 50 mg Oral Tablet - take 1 tablet by ORAL route every 8 hours as needed; 12 tablet. - Medication Reconciliation Form, Thank You Letter, Antibiotic Education, Prescription Opioid Use form. - Follow up: Private Physician; When: Upon discharge from the Emergency Department; Reason: If symptoms return, Recheck today's complaints, Continuance of care. - Problem is new. - Symptoms have improved. Signatures: Dispatcher [employer] Corinne Howell RN RN Mitra Little RN RN ak1 Albin Henriquez MD MD tw4 Corrections: (The following items were deleted from the chart) 22:24 22:04 05/23/2018 22:04 Discharged to Home. Impression: Low back pain. Condition is ak1 Stable. Forms are Medication Reconciliation Form, Thank You Letter, Antibiotic Education, Prescription Opioid Use. Follow up: Private Physician; When: Upon discharge from the Emergency Department; Reason: If symptoms return, Recheck today's complaints, Continuance of care. Problem is new. Symptoms have improved. tw4
[2018-05-23 22:30] VITALS: BP 137/80; TEMP 98.2; O2SAT 96
== END 2018-05-23 22:24 | disposition home or self-care (01) ==
LOC: ER 18:51
DX: M54.5 Low back pain (principal); J45.909 Unspecified asthma, uncomplicated; E11.9 Type 2 diabetes mellitus without complications; E78.5 Hyperlipidemia, unspecified; I10 Essential (primary) hypertension
CPT/HCPCS: 36415; 74176; 76377; 80048; 80076; 81003; 81015; 83690; 85025; 96374; 99284

== ENCOUNTER 2018-06-13 07:51 | Day surgery (SDC) | payer OTHER ==
--- OUTSIDE RECORDS SUMMARY | 2018-06-13 07:54 | XMS REPORT ---
:1945 Author Organization eClinicalWorks Care Team Providers Name Role Phone JuanraymondJose Provider Role Unavailable Allergies, Adverse Reactions, Alerts Substance Reaction Event Type N.K.D.A. Info Not Available Non Drug Allergy Problems Problem Type Condition Code Onset Dates Condition Status Problem Benign paroxysmal positional vertigo H81.10 Active Problem Hernia, inguinal K40.90 Active Problem COPD (chronic obstructive pulmonary J44.0 Active disease) with acute bronchitis Assessment Gastritis without bleeding, K29.70 Active unspecified chronicity, unspecified gastritis type Problem Pulmonary nodule seen on imaging R91.1 Active study Problem Iron deficiency anemia, unspecified D50.9 Active iron deficiency anemia type Problem Hypertension I10 Active Problem Gastritis without bleeding, K29.70 Active unspecified chronicity, unspecified gastritis type Problem Hyperlipemia, mixed E78.2 Active Problem Allergic rhinitis, seasonal J30.2 Active Problem Diabetes type 2, controlled E11.9 Active Problem Hearing loss H91.90 Active Medications Medication Code Code Instructions Start End Status Dosage System Date Date Flonase [facility] 38142885023 50 MCG/ACT Active 1 spray in Nasally Once a each day nostril Aspir-81 [facility] 08610461322 81 MG Orally Active 1 tablet Once a day Coreg [facility] 02847896047 6.25 MG Active TAKE ONE (1) TABLET(S) BY MOUTH TWICE A DAY. ProAir [facility] 05671909565 108 (90 Base) Active 2 puffs as RespiClick MCG/ACT needed Inhalation every 6 hrs Losartan [facility] 30959834327 100-25 MG Orally Active 1 tablet Potassium-HCTZ Once a day Ferrous Sulfate [facility] 45596076701 325 (65 Fe) MG Active 1 tablet Orally Twice a day Pravastatin [facility] 06246765786 10 MG Orally Active 1 tablet Sodium Once a day Omeprazole [facility] 57424929358 40 MG Orally Charisma Active 1 capsule Once a day 2018umet [facility] 69395732287 50-1000 MG Active 1 tablet Orally Twice a with meals day Pravastatin [facility] 06599820021 10 MG Orally Active 1 tablet Sodium Once a day ProAir [facility] 94144221354 108 (90 Base) Active INHALE TWO RespiClick MCG/ACT (2) PUFFS BY MOUTH EVERY 4 HOURS NEEDED. Results No Known Results Summary Purpose eClinicalWorks Submission
--- OUTSIDE RECORDS SUMMARY | 2018-06-13 07:54 | XMS REPORT ---
[...] End Status Dosage System Date Date Ferrous [facility] 04333386407 325 (65 Fe) MG Active 1 tablet Sulfate Orally Twice a day -81 ND 15641403601 81 MG Orally Active 1 tablet Once a day Coreg [facility] 50830887447 6.25 MG Active TAKE ONE (1) TABLET(S) BY MOUTH TWICE A DAY. ProAir ND 39986714457 108 (90 Base) Active INHALE TWO RespiClick MCG/ACT (2) PUFFS BY MOUTH EVERY 4 HOURS NEEDED. Pravastatin ND 62150576823 10 MG Orally Active 1 tablet Sodium Once a day ProAir ND 38853054363 108 (90 Base) Active 2 puffs as RespiClick MCG/ACT needed Inhalation every 6 hrs Losartan [facility] 59583077752 100-25 MG Active 1 tablet Potassium-HCTZ Orally Once a day Rectal Rocket NDC 0 rectally as April Active 1 suppository needed 2018 Pravastatin ND 52661322656 10 MG Orally Active 1 tablet Sodium Once a day Janumet ND 07403380899 50-1000 MG Active 1 tablet with Orally Twice a meals day Flonase ND 95291490121 50 MCG/ACT Active 1 spray in Nasally Once a each nostril day Results No Known Results Summary Purpose eClinicalWorks Submission
--- OUTSIDE RECORDS SUMMARY | 2018-06-13 07:54 | XMS REPORT ---
:1945 Author Organization eClinicalWorks Care Team Providers Name Role Phone Zhao [facility] Provider Role Unavailable Allergies, Adverse Reactions, Alerts [...] End Status Dosage System Date Date Coreg [facility] 86236394794 6.25 MG Orally Active 1 tab BID Coreg [facility] 72551203361 6.25 MG Active TAKE ONE (1) TABLET(S) BY MOUTH TWICE A DAY. Janumet [facility] 27563343412 50-1000 MG Active 1 tablet Orally Twice a with meals day Pravastatin [facility] 13217883961 10 MG Orally Active 1 tablet Sodium Once a day Ferrous Sulfate [facility] 99351941248 325 (65 Fe) MG Active 1 tablet Orally Twice a day Losartan [facility] 68991803197 100-25 MG Orally Active 1 tablet Potassium-HCTZ Once a day Pravastatin [facility] 54284311540 10 MG Orally Active 1 tablet Sodium Once a day ProAir [facility] 19842415052 108 (90 Base) Active 2 puffs as RespiClick MCG/ACT needed Inhalation every 6 hrs Aspir-81 [facility] 54190904835 81 MG Orally Active 1 tablet Once a day Flonase [facility] 42981053630 50 MCG/ACT Active 1 spray in Nasally Once a each day nostril Results No Known Results Summary Purpose eClinicalWorks Submission
--- OUTSIDE RECORDS SUMMARY | 2018-06-13 07:54 | XMS REPORT ---
:1945 Author Organization eClinicalWorks Care Team Providers Name Role Phone Zhao [facility] Provider Role Unavailable Allergies, Adverse Reactions, [...] End Status Dosage System Date Date Pravastatin [facility] 03736757669 10 MG Orally Active 1 tablet Sodium Once a day Janumet [facility] 26706676106 50-1000 MG Active 1 tablet Orally Twice a with meals day Ferrous Sulfate [facility] 59649854227 325 (65 Fe) MG Active 1 tablet Orally Twice a day Flonase [facility] 14456910609 50 MCG/ACT Active 1 spray in Nasally Once a each day nostril ProAir [facility] 44096825042 108 (90 Base) Active 2 puffs as RespiClick MCG/ACT needed Inhalation every 6 hrs Pravastatin [facility] 27495262513 10 MG Orally Active 1 tablet Sodium Once a day Coreg [facility] 41658502938 6.25 MG Orally Active 1 tab BID Losartan [facility] 35637539777 100-25 MG Orally Active 1 tablet Potassium-HCTZ Once a day -81 [facility] 10721821272 81 MG Orally Active 1 tablet Once a day ProAir NDC 57947505235 108 (90 Base) Active INHALE TWO RespiClick MCG/ACT (2) PUFFS BY MOUTH EVERY 4 HOURS NEEDED. Results No Known Results Summary Purpose eClinicalWorks Submission
--- OUTSIDE RECORDS SUMMARY | 2018-06-13 07:54 | XMS REPORT ---
:1945 Author Organization eClinicalWorks Care Team Providers Name Role Phone Jose Flores Provider Role Unavailable Allergies No Known Allergies Problems Problem Type Condition Code Onset Dates Condition Status Problem Benign paroxysmal positional vertigo H81.10 Active Problem Hernia, inguinal K40.90 Active Problem COPD (chronic obstructive pulmonary J44.0 Active disease) with acute bronchitis Problem Pulmonary nodule seen on imaging R91.1 Active study Problem Iron deficiency anemia, unspecified D50.9 Active iron deficiency anemia type Problem Hypertension I10 Active Problem Gastritis without bleeding, K29.70 Active unspecified chronicity, unspecified gastritis type Problem Hyperlipemia, mixed E78.2 Active Problem Allergic rhinitis, seasonal J30.2 Active Problem Diabetes type 2, controlled E11.9 Active Problem Hearing loss H91.90 Active Medications No Known Medications Results No Known Results Summary Purpose eClinicalWorks Submission
--- OUTSIDE RECORDS SUMMARY | 2018-06-13 07:54 | XMS REPORT ---
:1945 Author Organization e[employer]Works Care Team Providers Name Role Phone Jose Flores Provider Role Unavailable Allergies, Adverse Reactions, Alerts Substance Reaction Event Type N.K.D.A. Info Not Available Non Drug Allergy Problems Problem Type Condition Code Onset Dates Condition Status Problem Pulmonary nodule seen on imaging R91.1 Active study Problem COPD (chronic obstructive pulmonary J44.0 Active disease) with acute bronchitis Problem Benign paroxysmal positional vertigo H81.10 Active Assessment Grade IV hemorrhoids K64.3 Active Problem Hypertension I10 Active Problem Diabetes type 2, controlled E11.9 Active Problem Iron deficiency anemia, unspecified D50.9 Active iron deficiency anemia type Problem Allergic rhinitis, seasonal J30.2 Active Problem Hernia, inguinal K40.90 Active Problem Hearing loss H91.90 Active Problem Hyperlipemia, mixed E78.2 Active Medications Medication Code Code Instructions Start End Status Dosage System Date Date Losartan [facility] 05075143394 100-25 MG Orally Active 1 tablet Potassium-HCTZ Once a day Flonase [facility] 77754387382 50 MCG/ACT Active 1 spray in Nasally Once a each day nostril Pravastatin [facility] 89208387927 10 MG Orally Active 1 tablet Sodium Once a day Janumet [facility] 47980288822 50-1000 MG Active 1 tablet Orally Twice a with meals day Ferrous Sulfate [facility] 02776082327 325 (65 Fe) MG Active 1 tablet Orally Twice a day Pravastatin [facility] 28269206225 10 MG Orally Active 1 tablet Sodium Once a day ProAir [facility] 39009374288 108 (90 Base) Active 2 puffs as RespiClick MCG/ACT needed Inhalation every 6 hrs ProAir [facility] 97782801663 108 (90 Base) Active INHALE TWO RespiClick MCG/ACT (2) PUFFS BY MOUTH EVERY 4 HOURS NEEDED. Coreg [facility] 55098104342 6.25 MG Active TAKE ONE (1) TABLET(S) BY MOUTH TWICE A DAY. Aspir-81 [facility] 77245214895 81 MG Orally Active 1 tablet Once a day Results No Known Results Summary Purpose eClinicalWorks Submission
--- OUTSIDE RECORDS SUMMARY | 2018-06-13 07:54 | XMS REPORT ---
[...] End Status Dosage System Date Date ProAir [facility] 69577080452 108 (90 Base) Active 2 puffs as RespiClick MCG/ACT needed Inhalation every 6 hrs Coreg [facility] 31583163684 6.25 MG Orally Active 1 tab BID Aspir-81 [facility] 24627145087 81 MG Orally Active 1 tablet Once a day Janumet [facility] 61485677949 50-1000 MG Active 1 tablet Orally Twice a with meals day Ferrous Sulfate [facility] 32437515908 325 (65 Fe) MG Active 1 tablet Orally Twice a day Valsartan-[place] [facility] 38835614821 320-25 MG Inactive 1 tablet chlorothiazide Orally Once a day Losartan [facility] 57629569906 100-25 MG Sep 19, Active 1 tablet Potassium-HCTZ Orally Once a 2018 day Flonase [facility] 08443113033 50 MCG/ACT Active 1 spray in Nasally Once a each day nostril Pravastatin [facility] 06991604816 10 MG Orally Active 1 tablet Sodium Once a day Results No Known Results Summary Purpose eClinicalWorks Submission
--- OUTSIDE RECORDS SUMMARY | 2018-06-13 07:54 | XMS REPORT ---
[...] Instructions Start End Date Status Dosage Date [facility] 70386081190 50-1000 MG Orally Active 1 tablet Twice a day with meals Results No Known Results Summary Purpose eClinicalWorks Submission
--- OUTSIDE RECORDS SUMMARY | 2018-06-13 07:54 | XMS REPORT ---
[...] Status Dosage System Date Date Ferrous Sulfate [facility] 15509747113 325 (65 Fe) MG June 27, Active 1 tablet Orally Twice a 2018 day Aspir-81 [facility] 11230015116 81 MG Orally Active 1 tablet Once a day ProAir [facility] 43877821343 108 (90 Base) Active 2 puffs as RespiClick MCG/ACT needed Inhalation every 6 hrs Valsartan-[place] [facility] 96165273824 320-25 MG Orally June 27, Active 1 tablet chlorothiazide Once a day 2018 Coreg [facility] 38144860503 6.25 MG Orally Active 1 tab BID Pravastatin [facility] 05580410506 10 MG Orally Active 1 tablet Sodium Once a day Coreg [facility] 41178391160 6.25 MG Active TAKE ONE (1) TABLET(S) BY MOUTH TWICE A DAY. Janumet [facility] 34451937156 50-1000 MG Active 1 tablet Orally Twice a with meals day Flonase [facility] 26735973482 50 MCG/ACT Active 1 spray in Nasally Once a each day nostril Results Name Result Date Reference Range Unit Abnormality Flag HEMOGLOBIN A1c CMP LIPID PANEL WITH REFLEX TO DIRECT LDL CBC (INCLUDES DIFF/PLT) WITH SMEAR REVIEW Summary Purpose eClinicalWorks Submission
[2018-06-13] MEDS: NA CHLORIDE 0.9% 1,000 ML ONE ×2 (08:10→08:26)
[2018-06-13] MEDS ORDERED: PROPOFOL 200 MG/20 ML VIAL IV ONE (08:33)
[2018-06-13] MEDS ORDERED: LIDOCAINE 1% MPF 5 ML VIAL ONE (08:33)
--- NOTE | 2018-06-13 08:59 | ENDO RPT ---
[address], [address] EGD PROCEDURE REPORT EXAM DATE: 06/13/2018 PATIENT NAME: Alexx Altman MR#: [id number] BIRTHDATE: 1945 ATTENDING: Jose Flores DR STATUS: outpatient RFID TECHNICIAN: Vicente Tamez and Justina Virk RN INDICATIONS: The patient is a 73 yr old Male here for an EGD due to mid epigastric abdominal pain PROCEDURE PERFORMED: EGD with biopsy for H. pylori MEDICATIONS: Per Anesthesia. TOPICAL ANESTHETIC: none CONSENT: The patient understands the risks and benefits of the procedure and understands that these risks include, but are not limited to: sedation, allergic reaction, infection, perforation and/or bleeding. Alternative means of evaluation and treatment include, among others: physical exam, x-rays, and/or surgical intervention. The patient elects to proceed with this endoscopic procedure. DESCRIPTION OF PROCEDURE: During intra-op preparation period all mechanical medical equipment was checked for proper function. Hand hygiene and appropriate measures for infection prevention was taken. Procedure, possible complications, and alternatives including but not limited to the possibility of bleeding, perforation, tear, infection, sepsis, need for surgery, need for blood transfusion, and anesthesia related complications were explained to the patient. After the risks, benefits and alternatives of the procedure were thoroughly explained, Informed consent was verified, confirmed and timeout was successfully executed by the treatment team. The patient was placed in the left lateral position. The patient was anesthetized with topical anesthesia. Through the anesthetized oropharyngeal area, the scope was passed without any difficulty. The Pentax EG-[id number] ([id number]) endoscope was introduced through the mouth and advanced to the second portion of the duodenum. There was retained food @ the GEJ, as well as a stricture. Upon passing the food into the stomach, retroflexion displayed a Fungating mass @ Fundus / GEJ. The mass did not appear to involve the mucosa of the GEJ. The findings were all confirmed with narrow band imaging. The gastroscope was then slowly withdrawn and removed. A tubulovillous / Villous patch / mass was found in the fundus of stomach on retroflexion. It was located 41 cm from the point of entry. Multiple biopsies were obtained and sent to pathology. 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 Retained food was present in the gastroesophageal junction, this was delivered into the stomach. There was retained food @ the GEJ, as well as a stricture. Upon passing the food into the stomach, retroflexion displayed a Fungating mass @ Fundus / GEJ. The mass did not appear to involve the mucosa of the GEJ. The findings were all confirmed with narrow band imaging. Mild gastritis was found at the pylorus. With standard forceps, a biopsy was obtained and sent to pathology. A sessile polyp was found in the angulus, it was a diminutive discrete firm Polyp which was snared. Polyp was retrieved and sent to pathology. ADVERSE EVENTS: There were no complications. IMPRESSIONS: 1. A tubulovillous mass was found in the cardia 2. A tubulovillous mass was found in the fundus 3. 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 Retained food was present in the gastroesophageal junction 5. Mild gastritis was found at the pylorus RECOMMENDATIONS: 1. acid suppression therapy 2. anti-reflux regimen 3. await biopsy results 4. follow-up: office 2 week(s) 5. avoid NSAIDS 6. esophagram 7. follow-up of helicobacter pylori status, treat if indicated 8. CT Scan of Chest / Abdomen REPEAT EXAM: Jose Flores DR eSigned: Jose Flores DR 06/13/2018 8:58 AM cc: CPT CODES: ICD9 CODES: PATIENT NAME: Alexx Altman MR#: [id number]
[2018-06-13 09:57] VITALS: O2SAT 97
[2018-06-13 09:59] VITALS: BP 133/75; TEMP 98.5
--- NOTE | 2018-06-13 11:47 | RAD REPORT ---
EXAM DESCRIPTION: CT - Chest Abdomen Pelvis W Cont - 06/13/2018 11:09 am CLINICAL HISTORY: Gastric fundal mass, history of kidney stones, abdominal pain COMPARISON: CT imaging May 23, 2018. TECHNIQUE: Following dynamic enhancement using 100 milliliters nonionic IV contrast, axial imaging o f the chest, abdomen and pelvis was performed. Biphasic technique was utilized through the abdomen. Oral contrast was administered. All CT scans are performed using dose optimization technique as appropriate and may include automated exposure control or mA/KV adjustment according to patient size. FINDINGS: In the right upper lobe (image 25/88) there is a 13 millimeter irregular lobulated lung ma ss. In the posterior left upper lobe at the aortic arch level (image 21/88) there is a 2.5 centimeter area of lobulated nodularity. A 10 mm nodule is present at this same level in the medial aspect of t he superior segment left lower lobe. Patient has additional small areas of nodularity scattered in th e lung parenchyma under 5 mm in size. There are scarring changes in the anteromedial lingula. Patient has a small left pleural effusion with partial atelectasis or scarring in the posterior gutter. No right-sided pleural effusion. No pleural based mass. There is no pneumothorax. No significant aor tic or pulmonary arterial tree finding. A few small nonspecific mediastinal and hilar lymph nodes are present. No cardiomegaly. There is no pericardial effusion. There is questionable left ventricular m yocardial thickening. No chest wall mass or axillary lymphadenopathy. Liver size is normal. No suspicious liver lesions identifiable. There is a very small 6 mm round luce nt area in the anterior right upper lobe probably a cyst but too small to fully characterize. No sple nomegaly or focal splenic finding. No mass of the pancreatic parenchyma seen. Gallbladder and biliary tree are unremarkable. Gallstones can be occult on CT imaging. Symmetric renal function is present. No hydronephrosis or obstructing calculus. No mass arising from the renal parenchyma. No adrenal abn ormalities. Stomach is grossly abnormal. In the cardia, fundus and proximal body of the stomach there is signific ant irregular thickening of the gastric wall primarily along the lesser curvature. Gastric margins ar e poorly defined along the proximal lesser curvature. Individual and confluent mass and lymphadenopat hy extends into the adjacent fatty tissues. Periaortic/. Caval lymphadenopathy in the upper abdomen i s present up to 2.8 cm in diameter. Additionally, there is extensive soft tissue opacification that e xtends into the retroperitoneal space on the left. There is a confluent area of soft tissue mass dens ity in the retroperitoneal fat superior to the left kidney measuring up to 5 cm in diameter. There ar e numerous additional 2-15 millimeter areas of nodularity in the left-side retroperitoneal fat extend ing into the upper pelvis. Periaortic/ pericaval lymphadenopathy extends only slightly below the carter l vascular level. No distal aorta or iliac chain lymphadenopathy seen. No small bowel involvement. No active small bowel process. From cecum through the proximal rectum no active colon process seen. There is a questionable polyp or masslike density in the anterior rectum n ear the anus. Due to mucosal folds and curvature of the distal rectum in this region, CT has inherent limitation. Correlation can be made with digital exam or sigmoidoscopy as warranted. Prostate gland is prominent. Seminal vesicle are asymmetrically enlarged on the left. Disc and bony degenerative changes are present. No pathologic bony process. No significant vascular findings. IMPRESSION: Gastric malignancy findings with prominent thickening and nodularity of the cardia, fund us and proximal body of the stomach primarily along the lesser curvature. There is extensive mass and lymphadenopathy extension into the fatty tissues along the proximal lesse r curvature as well as a very extensive extension of malignancy into the left-side retroperitoneal fa t surrounding the left kidney and extending from the gastric level inferiorly into the upper pelvis. Periaortic/pericaval lymphadenopathy seen from the vy of the diaphragm to several cm below the carter l vascular level. Malignant findings of the abdomen are progressive from the May 23 imaging. The 3 masses of the lung field suspicious for metastatic disease with numerous additional small sub c entimeter areas of nodularity possibly metastatic as well. There is a small left pleural effusion. Questionable left ventricular myocardial wall thickening. Questionable 2.3 centimeter soft tissue mass anterior wall of the distal rectum. Enlargement of the left-side seminal vesicle. Prostate gland is prominent.
== END 2018-06-13 11:10 | disposition home or self-care (01) ==
LOC: OR 07:51
PROVIDERS: ATTEND Surgery
PROC: 0DB48ZX Excision of Esophagogastric Junction, Via Natural or Artificial Opening Endoscopic, Diagnostic (ICD-10-PCS; 2018-06-13)
PROC: 0DB78ZX Excision of Stomach, Pylorus, Via Natural or Artificial Opening Endoscopic, Diagnostic (ICD-10-PCS; 2018-06-13)
PROC: 0DB68ZX Excision of Stomach, Via Natural or Artificial Opening Endoscopic, Diagnostic (ICD-10-PCS; 2018-06-13)
PROC: 0DB68ZX Excision of Stomach, Via Natural or Artificial Opening Endoscopic, Diagnostic (ICD-10-PCS; principal; 2018-06-13 09:15)
DX: C16.1 Malignant neoplasm of fundus of stomach (principal); K22.2 Esophageal obstruction; K31.7 Polyp of stomach and duodenum; K29.50 Unspecified chronic gastritis without bleeding; R91.8 Other nonspecific abnormal finding of lung field; R59.1 Generalized enlarged lymph nodes; E11.9 Type 2 diabetes mellitus without complications; E78.2 Mixed hyperlipidemia; I10 Essential (primary) hypertension; J44.9 Chronic obstructive pulmonary disease, unspecified; Z79.84 Long term (current) use of oral hypoglycemic drugs; Z79.82 Long term (current) use of aspirin; Z79.899 Other long term (current) drug therapy
CPT/HCPCS: 43251; 43239; 36415; 88312 ×2; 82565; 82962; 88305; 71260; 74177; Q9967; J2704; J7030